=== PATIENT | female | born 1990 | race African-American/Black ===

== ENCOUNTER 2016-06-03 19:39 | Emergency (ER) | payer BC, OTHER ==
[2016-06-03 19:48] VITALS: BP 128/91; PULSE 72; TEMP 97.8; BMI 22.4
--- NOTE | 2016-06-03 20:01 | PDOC ---
[id number] 4d HEADACHE Time Seen by Provider: 06/03/16 19:42 - History of Present Illness Initial Comments: this 26-year-old woman who had lumbar puncture performed 4 days ago as part of diagnostic workup for MS, presents with frontal headache worse when in the upright position and alleviated when lying down. The patient was issued a prescription for butalbital/acetaminophen by her neurologist but states that this has not been helpful. The patient denies fever/chills, neck stiffness or other acute symptoms. She has very mild worsening of headache with bright light but denies nausea/vomiting. No previous history of migraine or other chronic headache Past History - Past Medical History Allergies/Adverse Reactions: Allergies Allergy/AdvReac Type Severity Reaction Status Date / Time No Known Allergies Allergy Verified 06/03/16 19:41 Home Medications: Ambulatory Orders Butalbital/Acetaminophen [Allzital 25-325 mg Tablet] 1 - 2 each PO Q4H PRN 06/03 Diclofenac Sodium [Voltaren -] 75 mg PO BID PRN #20 tablet. 06/03/16 Other medical history: IS BEING WORKED UP TO RULE OUT MS, S/P SPINAL TAP - Psycho/Social/Smoking Cessation Hx Anxiety: No Suicidal Ideation: No Smoking History: Never smoked Hx Alcohol Use: No Drug/Substance Use Hx: No Review of Systems - Review of Systems Able to Perform ROS?: Yes Comments:: 12 point review of systems is negative except for what is noted in the history of present illness *Physical Exam - Vital Signs Last Vital Signs Temp Pulse Resp BP Pulse Ox 97.8 F 72 18 128/91 100 06/03/16 19:40 06/03/16 19:40 06/03/16 19:40 06/03/16 19:40 06/03/16 19:40 - Physical Exam Comments: Adult female, alert and oriented 3, in no acute distress Vital signs as noted HEAD: No contusions, abrasions or lacerations of the scalp; no facial ecchymosis , deformities or tenderness EYES: Pupils equal, round and reactive to light, extraocular movements intact, sclera anicteric, conjunctiva clear PHARYNX: No erythema, exudate or edema; mucous membranes moist NECK: Supple, nontender, no masses or bruits LUNGS: Clear to auscultation bilaterally CARDIAC: S1, S2 normal; no extra sounds, rubs or murmurs heard ABDOMEN:Normoactive bowel sounds, nontender, no masses, no organomegaly EXTREMITIES: Normal range of motion, no edema,deformity or tenderness NEUROLOGICAL: Cranial nerves II through XII grossly intact. Normal speech, normal gait.moving all 4 extremities equally, Sensation intact in all extremities. PSYCH: Normal mood, normal affect. SKIN: Warm, Dry, normal turgor, no rashes or lesions noted. Progress Note - Progress Note Progress Note: case discussed with , on-call for neurology. Nonsteroidal anti-inflammatory medications not contraindicated at this point, so Toradol IM can be administered. Ingestion of caffeine can also be helpful (it appears that this is not part of the butalbital/acetaminophen medication prescribed by her neurologist) if above suggestions are not helpful, anesthesia service can be consulted to place a blood patch. Medical Decision Making - Medical Decision Making patient given Toradol 60 mg IM with good relief of pain patient will be discharged with followup by her neurologist *DC/Admit/Observation/Transfer Diagnosis at time of Disposition: Post lumbar puncture headache - Discharge Dispostion Disposition: HOME Condition at time of disposition: Stable - Prescriptions Prescriptions: Diclofenac Sodium [Voltaren -] 75 mg PO BID PRN #20 tablet.dr CHRISTIAN Reason: Pain - Referrals Referrals: Nafisa Tello MD [Primary Care Provider] - - Patient Instructions Printed Discharge Instructions: DI for Post-Spinal Puncture Headache Additional Instructions: ibuprofen/naproxen as needed drink caffeine containing beverages over the next few days return to ER if headache is severe followup with your neurologist as discussed - Post Discharge Activity Work/School Note: Back to Work
[2016-06-03] MEDS ORDERED: KETOROLAC TROMETHAMINE 60 MG/2 ML VIAL IM ONE (20:39)
[2016-06-03] MEDS ORDERED: KETOROLAC TROMETHAMINE 60 MG/2 ML VIAL ONE (20:40)
== END 2016-06-03 21:44 | disposition home or self-care (01) ==
LOC: FER 19:39
PROC: 3E0233Z Introduction of Anti-inflammatory into Muscle, Percutaneous Approach (ICD-10-PCS; principal; 2016-06-03)
DX: G97.1 Other reaction to spinal and lumbar puncture (principal)
CPT/HCPCS: 99283-25

== ENCOUNTER 2017-02-24 14:00 | Emergency (ER) | payer OTHER ==
[2017-02-24 14:07] VITALS: BP 117/85; PULSE 92; TEMP 98.1; BMI 21.6
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
== END 2017-02-24 16:25 | disposition home or self-care (01) ==
LOC: FER 14:00
DX: S13.4XXA Sprain of ligaments of cervical spine, initial encounter (principal); G35 Multiple sclerosis; V43.52XA Car driver injured in collision with other type car in traffic accident, initial encounter; Y93.89 Activity, other specified; Y92.9 Unspecified place or not applicable
CPT/HCPCS: 99282-25